=== PATIENT | female | born 1970 | race Asian ===

== ENCOUNTER 2024-04-13 05:06 | Day surgery (SDC) | payer OTHER ==
[2024-04-11 13:38] VITALS: BMI 35.5
[2024-04-13 08:28] VITALS: TEMP 98.2
[2024-04-13 10:39] VITALS: BP 120/65; PULSE 61; RESP 16
== END 2024-04-13 09:10 | disposition home or self-care (01) ==
LOC: JASU-ENDO 05:06
PROVIDERS: ATTEND Internal Medicine Gastroenterology
PROC: 0DBL8ZX Excision of Transverse Colon, Via Natural or Artificial Opening Endoscopic, Diagnostic (ICD-10-PCS; principal; 2024-04-13 07:30)
DX: Z12.11 Encounter for screening for malignant neoplasm of colon (principal); D12.3 Benign neoplasm of transverse colon
CPT/HCPCS: 88305-TC